=== PATIENT | male | born 1985 | race Two or more races ===

== ENCOUNTER 2019-04-06 03:34 | Emergency (ER) | payer SELFPAY ==
[~2019-04-06] VITALS: Ht 175.3 cm; Wt 134.4 kg
[2019-04-06] MEDS ORDERED: MORPHINE SULFATE 4 MG/ML, 1ML IVPush PRN (04:00)
[2019-04-06] MEDS ORDERED: SODIUM CHLORIDE FLUSH 10ML SYR IVF ONE (04:00)
[2019-04-06] MEDS ORDERED: ONDANSETRON 2MG/ML, 2ML IVPush ONE (04:00)
[2019-04-06] MEDS ORDERED: MORPHINE SULFATE 4 MG/ML, 1ML ONE (04:04)
[2019-04-06] MEDS ORDERED: ONDANSETRON 2MG/ML, 2ML ONE (04:04)
[2019-04-06 04:11] LABS: BASOPHILS # (AUTO) 0.03 x10^3/uL (0-0.1); BASOPHILS % (AUTO) 0 % (0-1); EOSINOPHILS # (AUTO) 0.03 x10^3/uL (0-0.4); EOSINOPHILS % (AUTO) 0 % (1-7); LYMPHOCYTES # (AUTO) 2.36 x10^3/uL (1-3.4); LYMPHOCYTES % (AUTO) 18 % (22-44); MD NO; MEAN CORPUSCULAR HEMOGLOBIN 31.2 pg (27.5-34.5); MEAN CORPUSCULAR HGB CONC 33.2 g/dL (33.2-36.2); MEAN CORPUSCULAR VOLUME 93.8 fL (81-97); MONOCYTES # (AUTO) 0.39 x10^3/uL (0.2-0.8); MONOCYTES % (AUTO) 3 % (2-9); NEUTROPHILS # (AUTO) 10.48 x10^3/uL (1.8-6.8); NEUTROPHILS % (AUTO) 79 % (42-75); PLATELET COUNT 204 x10^3/uL (130-400); RED BLOOD COUNT 5.17 x10^6/uL (4.38-5.82); RED CELL DISTRIBUTION WIDTH 12.8 % (9.4-14.8)
[2019-04-06 04:14] LABS: ALANINE AMINOTRANSFERASE 136 U/L (12-78); ALBUMIN 4.2 g/dL (3.4-5.0); ANION GAP 9 mmol/L (5-15); CALCIUM 7.9 mg/dL (8.5-10.1); CHLORIDE 111 mmol/L (98-107); CREATININE 1.04 mg/dL (0.7-1.3)
[2019-04-06 04:17] LABS: ALKALINE PHOSPHATASE 109 U/L (45-117); BILIRUBIN,TOTAL 0.4 mg/dL (0.2-1.0); TOTAL PROTEIN 7.9 g/dL (6.4-8.2)
--- NOTE | 2019-04-06 04:57 | NUR ---
UPDATED PATIENT ON PLAN OF CARE, POLICE AT BEDSIDE QUESTIONING PATIENT. PATIENT DENIES ANY FURTHER NEEDS AT THIS TIME. VITAL SIGNS UPDATED, WILL CONTINUE TO MONITOR.
[2019-04-06] MEDS ORDERED: PLEASE ENTER ALLERGIES MC SCH (05:00)
--- NOTE | 2019-04-06 05:51 | NUR ---
FAMILY AT BEDSIDE WITH PATIENT. NO NOTED NEEDS AT THIS TIME. WILL CONTINUE TO MONITOR.
[2019-04-06] MEDS ORDERED: LIDOCAINE-MPF 1%, 5ML ONE (06:05)
[2019-04-06 06:13] VITALS: BP 124/104
--- NOTE | 2019-04-06 06:28 | NUR ---
PATIENT'S WOUNDS CLEANSED, AND PREPPED FOR LACERATION REPAIRS. PATIENT TOLERATED INTERVENTIONS WELL. NO NOTED ACUTE DISTRESS. VITAL SIGNS REMAIN UNCHANGED.
[2019-04-06] MEDS ORDERED: DIPH,PERTUSS(ACELL),TET VAC/PF 0.5 ML IM-VACC ONE (06:30)
[2019-04-06] MEDS ORDERED: LIDOCAINE-MPF 1%, 5ML INFIL ONE (06:30)
== END 2019-04-06 06:57 | disposition home or self-care (01) ==
LOC: ED 05:28
DX: S06.0X0A Concussion without loss of consciousness, initial encounter (principal); S02.2XXA Fracture of nasal bones, initial encounter for closed fracture; S01.01XA Laceration without foreign body of scalp, initial encounter; F10.120 Alcohol abuse with intoxication, uncomplicated; Y04.0XXA Assault by unarmed brawl or fight, initial encounter; Y93.89 Activity, other specified; Y92.410 Unspecified street and highway as the place of occurrence of the external cause; Y99.8 Other external cause status
CPT/HCPCS: 12001; 12011; 36415; 70450; 70486; 72125; 73110; 73130; 80053; 80307; 85025; 96374; 96375; 99284; J2270; J2405